=== PATIENT | female | born 1960 | race African-American/Black ===

== ENCOUNTER 2016-05-18 06:20 | Day surgery (SDC) | payer BC ==
[~2016-05-18] VITALS: Ht 154.9 cm; Wt 78.9 kg
[2016-05-18] VITALS (7 sets, daily range): BP systolic 98–140; BP diastolic 63–98; PULSE 73–87; RESP 13–16; Ht 154.9 cm; Wt 78.9 kg
[~2016-05-18 06:20] MED LIST: CEFAZOLIN 2 GM/50 ML (PMX) 50 ML IVPB ONE; CIPR-173 PO; HYDR25TA6 PO; PROC5TAB9 PO; SOD CHLORIDE 0.9% 1,000 ML IV SCH; VENTOLIN INH; ZOF8 PO
[2016-05-18] MEDS ORDERED: HYD25 PO (07:21)
[2016-05-18 07:39] LABS: POTASSIUM 3.7 mmol/L (3.5-5.1)
[2016-05-18] MEDS ORDERED: HEPARIN 1000 UNITS/ML 10 ML INJ ONE (07:39)
[2016-05-18] MEDS ORDERED: LIDOCAINE 1% (MPF) 30 ML INJ ONE (07:39)
[2016-05-18 07:40] LABS: INR 0.9; PROTIME 12.1 Sec (12.2-14.2); PT RATIO 0.9
[2016-05-18 07:44] LABS: PARTIAL THROMBOPLASTIN TIME 24.1 Sec (25.0-35.0)
[2016-05-18 07:46] LABS: CALCIUM 9.1 mg/dl (8.4-10.2); CREATININE 0.69 mg/dl (0.44-1.00)
[2016-05-18 07:56] LABS: BASOPHIL # 0.1 10^3/ul (0.0-0.1); BASOPHILS % 1.6 % (0.0-2.0); EOSINOPHILS # 0.2 10^3/ul (0.0-0.5); EOSINOPHILS % 2.9 % (0.0-7.0); HEMATOCRIT 39.7 % (37.0-47.0); HEMOGLOBIN 13.1 g/dl (12.0-16.0); LYMPHOCYTES # 1.4 10^3/ul (0.8-2.9); LYMPHOCYTES % 16.3 % (15.0-51.0); MEAN CORPUSCULAR HGB CONC 33.1 g/dl (32.0-37.0); MEAN CORPUSCULAR VOLUME 96.6 fl (82.0-101.0); MEAN PLATELET VOLUME 7.3 fl (7.4-10.4); MONOCYTE # 0.9 10^3/ul (0.3-0.9); MONOCYTES % 10.4 % (0.0-11.0); NEUTROPHIL # 5.8 10^3/ul (1.6-7.5); NEUTROPHILS % 68.8 % (39.0-77.0); PLATELET COUNT 319 10^3/UL (140-440); RED BLOOD COUNT 4.11 10^6/ul (4.20-5.40); UNCORRECTED WBC 8.4 10^3/ul (4.8-10.8); WHITE BLOOD COUNT 8.4 10^3/ul (4.8-10.8)
[2016-05-18] MEDS ORDERED: FENTAnyl 50 MCG/ML VIAL ONE (08:14)
[2016-05-18] MEDS ORDERED: PROPOFOL 20 ML ONE (08:14)
[2016-05-18] MEDS ORDERED: MIDAZOLAM 1 MG/ML 2 ML INJ ONE (08:14)
[2016-05-18 08:35] LABS: CONDITION 1
[2016-05-18] MEDS ORDERED: LIDOCAINE 1% (MPF) 30 ML INJ INJ ONE (08:42)
[2016-05-18] MEDS ORDERED: CEFAZOLIN 1 GM INJ ONE (08:52)
[2016-05-18] MEDS ORDERED: DEXAMETHASONE 4 MG/ML 1 ML INJ ONE (08:52)
[2016-05-18] MEDS ORDERED: METOCLOPRAMIDE 10 MG INJ ONE (08:52)
[2016-05-18] MEDS ORDERED: ONDANSETRON 4 MG INJ ONE (08:52)
[2016-05-18] MEDS ORDERED: ONDANSETRON 4 MG INJ IV PRN (09:00)
[2016-05-18] MEDS ORDERED: HYDROmorphONE (0.2 MG/ML) 10ML SYG IV PRN ×2 (09:00)
[2016-05-18] MEDS ORDERED: METOCLOPRAMIDE 10 MG INJ IV PRN (09:00)
[2016-05-18] MEDS ORDERED: morphine (1 MG/ML) 10ML SYRINGE IV PRN ×2 (09:00)
--- NOTE | 2016-05-18 09:37 | OPR ---
DATE OF OPERATION: 05/18/2016 PREOPERATIVE DIAGNOSIS: History of breast cancer, need for chemo port removal. POSTOPERATIVE DIAGNOSIS: History of breast cancer, need for chemo port removal. OPERATION PERFORMED: Removal of chemo port right subclavian location. ANESTHESIA: IV sedation with local. ANESTHESIOLOGIST: . SURGEON: Mushtaq Farias MD PUBLIC HE[employer] SOCIAL WORKER: Brenna Damian MD INDICATIONS FOR PROCEDURE: The patient is a 55-year-old female I previously treated for breast canc er. She successfully completed her chemotherapy and requested removal of her chemo port. She conse nted and was scheduled for surgery. DESCRIPTION OF PROCEDURE: The patient was brought to the operating theater, placed under IV sedatio n. The anterior thorax was prepped and draped in the usual sterile fashion. The area around the ch emo port was infiltrated with 0.5% Marcaine local anesthetic with epinephrine. The previous surgica l incisional scar was reincised with 15 blade scalpel. Subcutaneous tissue was dissected with caute ry down to the pseudocapsule surrounding the port. The capsule was incised and the port was gently removed while pressure was held in an infraclavicular location. The port appeared grossly intact. It was sent to pathology to confirm that it was intact. The wound was then irrigated. Minimal blee ding was controlled with cautery. The skin was then reapproximated with 4-0 Vicryl suture in subcut icular fashion, and benzoin and Steri-Strips were applied. The patient tolerated procedure well. T he estimated blood loss was 5 mL. There were no complications and the patient was transported in st able condition to the recovery room. Dictated By: MUSHTAQ FARIAS MD TL/INGRID Conf#: [id number] DID#: [id number] CC: JUAN J DAMIAN MD;*EndCC*
== END 2016-05-18 12:00 | disposition home or self-care (01) ==
LOC: SDS 06:20
PROVIDERS: ATTEND Surgery Surgical Oncology
DX: Z45.2 Encounter for adjustment and management of vascular access device (principal); Z85.3 Personal history of malignant neoplasm of breast
CPT/HCPCS: 36590; 80048; 85025; 85610; 85730; J0690; J2250; J3010; J1100; J1644; J2405; J2765